=== PATIENT | female | born 1935 | race Caucasian/White ===

== ENCOUNTER 2024-01-08 18:02 | Inpatient (IN) | payer MEDICARE, BC, SELFPAY ==
[2024-01-08] VITALS (9 sets, daily range): BP systolic 132–179; BP diastolic 41–95
[2024-01-08 12:30] LABS: % Basophils 0.1 % (0-2); % Immature Granulocytes 0.3 % (0-0.5); % Lymphocytes 13.4 % (20.5-51.1); % Monocytes 6.8 % (1.7-9.3); % Neutrophils 79.4 % (42.2-75.2); Absolute Lymphocytes 0.9 10^3/uL (1.2-3.4); Absolute Monocytes 0.5 10^3/uL (0.1-0.6); Absolute Neutrophils 5.4 10^3/uL (1.4-6.5); Hematocrit 42.4 % (37.0-47.0); Nucleated Red Blood Cells % 0 %; Red Blood Cell Count 4.82 10^6/uL (4.20-5.40); Red Cell Dist. Width 13.2 % (11.5-14.5); White Blood Cell Count 6.8 10^3/uL (4.8-10.8)
[2024-01-08 12:34] LABS: ALT (SGPT) 14 U/L (0-35); AST (SGOT) 31 U/L (14-36); Albumin 4.3 g/dl (3.5-5.0); Alkaline Phosphatase 88 U/L (38-126); Blood Urea Nitrogen 27 mg/dl (7-17); Calcium 9.4 mg/dl (8.4-10.2); Carbon Dioxide 25 mmol/L (22-30); Chloride 94 mmol/L (98-107); Glucose 114 mg/dl (70-99); Potassium 4.1 mmol/L (3.5-5.1); Sodium 131 mmol/L (135-145); Total Bilirubin 0.8 mg/dl (0.2-1.3); Total Protein 6.8 g/dl (6.3-8.2); eGFR 54.53
[2024-01-08 13:18] LABS: Platelet Count 132 10^3/uL (130-400)
[2024-01-08] MEDS: DELTASONE 60 MG PO (13:56)
[2024-01-08] MEDS: DUONEB 3 ML INH ×3 (14:00→14:22)
[2024-01-08] MEDS: NSS 500 IV (14:11)
--- NOTE | 2024-01-08 14:23 | ED.GENMED ---
History of Present Illness
General
Chief Complaint: Weakness
Time Seen by Provider: 01/08/24 13:05
History of Present Illness
History of Present Illness:
88-year-old female with history of high blood pressure presenting to the emergency department for worsening cough. Patient reports symptoms for the past 5 days, productive cough with shortness of breath. Notes sick contacts at home. Also reports
GI symptoms with upper abdominal, constipation. She has had overall decreased p.o. intake. She tried [id number]-[id number] cough medication without relief. She denies fever. She denies any chest pain. She denies any vomiting. Notes history of
hernia in her abdomen however wishes for her abdominal pain is presently. Denies additional acute medical
Past History
Past History
ED Past Medical History: HTN and Other (Osteoporosis,)
ED Past Surgical History: Other (Thyroidectomy)
Social History
Tobacco: Non-smoker
Alcohol: None
Personal:
Living: alone
Phy Exam
Physical Exam
Physical Exam:
GENERAL: Alert , in no apparent distress
EYE: pupils equal and reactive
NECK: Supple, no significant adenopathy.
ENT: o/p clr, mmm.
CARDIAC: Regular rate and rhythm .
LUNGS: Diffuse wheezing bilaterally with rhonchorous breath sounds. No increased work of breathing
ABDOMEN: Soft, focal tenderness in the epigastric region over hernia, reducible, however moderate tenderness
NEUROLOGICAL: Alert and oriented, no focal neuro deficits
SKIN: Warm and dry, skin intact.
MUSCULOSKELETAL: No edema, well perfused.
PSYCH: Normal and appropriate interaction.
Course
Orders/Labs/Results
Orders:
Orders
01/08/24 Breakfast
Cholesterol Lowering
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
Cholesterol Lowering: Sodium, 2 Gram
01/08/24 11:38
Electrocardiogram (*1) Urgent
Reason for Study: Other
Other Reason for Exam: Respiratory Distress
CR Chest - 2 Views Urgent
Comment:
Reason For Exam: respiratory distress
01/08/24 11:56
Complete Blood Count/With Diff Urgent
Comprehensive Metabolic Panel Urgent
01/08/24 13:37
0.9% Sodium Chloride 500 ml [Nss] 500 ml IV BOLUS
Ipratropium/Albuterol Sulfate [Duoneb] 3 ml INH R NOW STA
01/08/24 13:40
Ipratropium/Albuterol Sulfate [Duoneb] 3 ml INH R NOW ONE
Ipratropium/Albuterol Sulfate [Duoneb] 3 ml INH R NOW STA
01/08/24 13:41
CT Abd/pelvis W Iv Cont Urgent
Comment:
Reason For Exam: upper abdominal pain, h x hernia
01/08/24 13:46
Prednisone [Deltasone] 60 mg PO NOW STA
01/08/24 14:15
COVID-19 Antigen Urgent
Source: Nasal Swab
Influenza A+B Rapid Molecular Urgent
[facility] Source: Nasal Swab
Specimen Description:
01/08/24 17:09
Azithromycin 500 mg/250 ml [Zithromax Infusion] 500 mg in 250 ml IV NOW
CefTRIAXone [Rocephin] 1,000 mg IV NOW STA
01/08/24 17:32
Admit/Transfer Patient As Directed
Co-Sign Provider:
Level of Care: Inpatient admission
Assign to:: Telemetry
Physician / Group: joana duran
Diagnosis: acute hypoxic respiratory failure
Reason for Telemetry: Arrhythmia
Date to Stop Telemetry: 01/11/24
Time to Stop Telemetry: 11:00
Reason for Hospitalization: acute hypoxic respiratory failure
Expected length of stay greater than two midnights?: Yes
ELOS- Estimated Length of Stay in days: 3
I certify the patient meets the requirements for IP care: Yes
01/08/24 17:33
Code Status As Directed
Resuscitation Status: Full Code
01/08/24 19:28
Acetaminophen [Tylenol] 650 mg PO Q4HPRN PRN
Enoxaparin Sodium [Lovenox] 40 mg SC QPM
Ipratropium/Albuterol Sulfate [Duoneb] 3 ml INH R Q4HPRN PRN
01/08/24 19:28
PULMONARY CONSULT Routine
Consulting Provider: Ariane Pereyra
Was physician already notified: Yes
Legionella Urinary Antigen Routine
[place] Source: Urine
Specimen Description:
Strep pneumoniae Antigen Routine
[facility] Source: Urine
Specimen Description:
Activity As Directed
Activity Level: Out of Bed-Early Mobility
Intake/ Output As Directed
Frequency: Per unit guidelines
Vital Signs As Directed
Frequency: Per unit guidelines
Weight As Directed
Frequency: Once
Comment: on admission
O2 Therapy [RESP] Routine
Titrate/Wean O2 to maintain O2 sat greater than (%): 95
Special Instructions: Wean as tolerated
Pt Eval And Treat Routine
Activity Level: As Tolerated
DX Deep Vein Thrombosis Video Routine
01/08/24 20:00
Guaifenesin [Mucinex] 600 mg PO Q12
01/09/24 06:00
Basic Metabolic Panel IN AM
Complete Blood Count/No Diff IN AM
01/09/24 12:00
Diltiazem Extended Release [Cardizem Cd] 120 mg PO NOON
Losartan [Cozaar] 100 mg PO NOON
01/09/24 18:00
Azithromycin 500 mg/250 ml [Zithromax Infusion] 500 mg in 250 ml IV Q24H
CefTRIAXone [Rocephin] 1,000 mg IV Q24H
01/10/24 06:00
Basic Metabolic Panel IN AM
Complete Blood Count/No Diff IN AM
01/11/24 06:00
Basic Metabolic Panel IN AM
Complete Blood Count/No Diff IN AM
01/11/24 11:00
DC Protocol for Telemetry ONCE
01/12/24 06:00
Basic Metabolic Panel IN AM
Complete Blood Count/No Diff IN AM
01/13/24 06:00
Basic Metabolic Panel IN AM
Complete Blood Count/No Diff IN AM
Abnormal Lab Results
01/08/24
11:56
MPV 12.0 H fL
(7.4-10.4)
Absolute Lymphs (auto) 0.9 L 10^3/uL
(1.2-3.4)
Neutrophils % 79.4 H %
(42.2-75.2)
Lymphocytes % 13.4 L %
(20.5-51.1)
Sodium 131 L mmol/L
(135-145)
Chloride 94 L mmol/L
(98-107)
BUN 27 H mg/dl
(7-17)
Glucose 114 H mg/dl
(70-99)
01/08/24 11:56
01/08/24 11:56
Vital Signs
Initial and Last Documented VS:
Initial Vital Signs
Temp Pulse Resp BP Pulse Ox
98.0 F 74 26 176/87 90
01/08/24 11:35 01/08/24 11:35 01/08/24 11:35 01/08/24 11:35 01/08/24 11:35
Last Documented Vital Signs
Temp Pulse Resp BP Pulse Ox
97.8 F 102 17 137/95 92
01/08/24 20:00 01/08/24 20:00 01/08/24 20:00 01/08/24 20:00 01/08/24 20:33
MDM/Problems Addressed
MDM/Problems Addressed:
88-year-old female with history of hypertension presenting for cough and shortness of breath for 5 days. Vital signs on arrival significant for high blood pressure
On exam, patient is in no acute respiratory distress, however does have diffuse rhonchorous breath sounds with wheezing. Patient and nursing protocol placed prior to my assessment, unremarkable laboratory analysis and chest x-ray imaging without
evidence of pneumonia. For this reason, more suspicious for viral process versus bronchitis. Will treat with DuoNebs and prednisone. Will also swab for influenza and COVID. Patient also noted to have tenderness overlying her hernia, although
reducible suspicion for strangulation versus incarceration. Plan for CT imaging.
16:00 -on reassessment, patient without significant improvement with DuoNebs and steroids. Oxygen dropped to the high 80s, placed on 2 L O2. Plan for admission, pending CT imaging of the abdomen
17:10 -CT without acute abnormality to the abdomen, however does show lower lobe pneumonia, consistent with symptoms. For this reason we will start antibiotics. No leukocytosis, blood pressure within normal limits. Without concern for sepsis.
Given oxygen requirements with acute infection, feel patient warrants admission.
*Critical Care Note
Total Time (30-74mins, 75-104mins- exclusive of procedures): Not Applicable
ED Attending Note
-
Portions of this chart may have been created with voice recognition software.� Occasional wrong word or��sound alike� substitutions may have occurred due to the inherent limitations of voice recognition software.
Discharge Plan
Departure
Patient Disposition: Admit
Date of Disposition: 01/08/24
Time of Disposition: 17:11
Admit to doctor: mahin
Presentation/result/management discussed w/ accepting MD/DO: Hospitalist
Condition: Fair
Discharge Problem:
Community acquired pneumonia, Hypoxia
Interventions
Interventions:
*Risk Screen - Suicide Last Done: 01/08/24 20:21
*General Assessment Last Done: 01/08/24 11:35
*ED COVID-19 Vaccine History Last Done: 01/08/24 11:35
*Nursing Disposition Last Done: 01/08/24 19:20
ED- Cardiac Assessment Last Done: 01/08/24 17:00
ED- Neurological Assessment Last Done: 01/08/24 17:00
ED- Pulmonary Assessment Last Done: 01/08/24 16:24
Discharge Date and Time
Discharge Date/Time: 01/08/24 19:20
[2024-01-08 14:52] LABS: COVID-19 Antigen Negative (Negative)
--- NOTE | 2024-01-08 17:15 | HPS.HSE ---
Family Physician
-
Family Physician: Faith Morales
Chief Complaint
-
cough, congestion
History of Present Illness
88-year-old female with history of high blood pressure presenting to the emergency department for worsening non productive cough and chest congestion for past 3 days. patient stated very weak. took Tylenol daily for generalized body achiness. denied
fever, chills. denied sob, chest pain. denied abdominal pain,n,v,d. denied dysuria or hematuria.
CT with pneumonia. requiring 4l of oxygen. admitting for further mangment.
Medical History
Past Medical History
Past Medical History: Reports Other
Additional Past Medical History:
PE
Hypertension
chronic kidney disease
Glaucoma
Cataract
Hiatal hernia
Osteoporosis
Past Surgical History: Reports Other
Additional Past Surgical History:
Left hip ORIF
Right cataract surgery
Social History
Tobacco: Non-smoker
Alcohol: None
Drug: None
Personal:
Living: With Family
Family History
Family History: Not pertinent
Allergies / Home Medications
Allergies reflects when Allergies were last updated in [facility].
Home Medications with original date entered in [facility]
Allergy/Medication List:
Allergies
Allergy/AdvReac Type Severity Reaction Status Date / Time
lisinopril Allergy Unknown Unknown Verified 05/05/21 13:39
metoprolol Allergy Unknown Unknown Verified 05/05/21 13:39
amlodipine Allergy Unknown Verified 05/05/21 13:39
Home Medications
acetaminophen 325 mg tablet (Tylenol) 325 mg PO QIDPRN PRN mild pain 01/08/24
cholecalciferol (vitamin D3) 1 tab PO NOON 01/08/24
diltiazem HCl 120 mg capsule,extended release 24 hr, controlled (DILT-XR) 120 mg PO NOON 01/08/24
losartan 100 mg tablet 100 mg PO NOON 01/08/24
therapeutic multivitamin 1 tab PO NOON PRN supplement 01/08/24
Review of Systems
-
Constitutional: Reports No Symptoms
EENT: Reports Other (Congestion)
Respiratory: Reports Cough
Cardiac: Reports No Symptoms
Abdomen/GI: Reports No Symptoms
: Reports No Symptoms
Musculoskeletal: Reports No Symptoms
Skin: Reports No Symptoms
Neurological: Reports No Symptoms
Endocrine: Reports No Symptoms
Hematologic/Lymphatic: Reports No Symptoms
Psych: Reports No Symptoms
Physical Exam
Vital Signs
Vital Signs
Temp Pulse Resp BP Pulse Ox
98.0 F 95 26 179/87 92
01/08/24 11:35 01/08/24 16:25 01/08/24 11:35 01/08/24 16:16 01/08/24 16:24
Physical Exam
General: Well Developed, Well Nourished and No Apparent Distress
HEENT: NormoCephalic, Moist mucous membranes and Atraumatic
Respiratory: Wheezes and Rales
Cardiac: S1/S2 and Regular Rhythm; No Murmur or Rub
GI: Soft, Non Tender, Non Distended and Normal Bowel Sounds; No Organomegaly
Rectal: Deferred by Provider
Musculoskeletal: No Clubbing, No Cyanosis and No Edema
Skin: No Rash
Neuro: AO x 3 and Nonfocal/grossly intact
Psych: Calm
Laboratory Results
-
01/08/24 11:56
01/08/24 11:56
Laboratory Results
Total Bilirubin 0.8 mg/dl (0.2-1.3) 01/08/24 11:56
AST 31 U/L (14-36) 01/08/24 11:56
ALT 14 U/L (0-35) 01/08/24 11:56
Alkaline Phosphatase 88 U/L (38-126) 01/08/24 11:56
Data Reviewed
-
Diagnostic Radiology: Report Reviewed by me
CT Scan: Report Reviewed by me
Lab Data: Labs Reviewed by me
Impression/Plan
-
# Cough/short of breath/wheezing/acute hypoxic respiratory failure likely from pneumonia
-COVID-negative, influenza negative
-CT abdomen pelvis with impression of Small fat-containing upper abdominal wall hernia.Cholelithiasis.Colonic diverticulosis.Bilateral adnexal cystic lesions for which a nonemergent follow-up pelvic ultrasound is recommended.Mild bilateral lower
lobe pneumonia.
-Chest x-ray No acute pulmonary abnormalities suspected.Streaky linear opacity at each lung base, similar compared to distant prior chest x-ray, most suggestive of scarring.
-Patient requiring 4 L of oxygen
-Nebs as needed for short breath and wheezing
-Continue ceftriaxone azithromycin
-Wean oxygen as tolerated
-obtain strep pneumoniae, urine legionella
# Acute on hyponatremia likely dehydration
-Sodium 131
-Received normal saline x 1 bag in ER
-Monitor BMP in a.m.
# Essential hypertension
-Losartan, diltiazem continued
#hxt of PE
# DVT prophylaxis
-Lovenox subcu
# CODE STATUS
-Full code
#
--- NOTE | 2024-01-08 17:30 | W.PN.UPDATE ---
Update Note
Progress Note Update
This serves as an addendum to the H&P dictated by James Doyle on 01/08/2024.
I saw and examined the patient.
The LOGISTICS ASSOCIATE or PA's note was reviewed and I agree with the note.
Comment:
Patient 88 years old female history of hypertension osteoporosis presented to the hospital cough and shortness of breath. Patient has been experiencing upper respiratory symptoms over the last few days also associated with some bloody nasal and GI
discomfort and constipation. She has decreased oral intake. Denies fevers or chills. In the ER she had a CT scan of the abdomen that showed some lower lobe pneumonia. Chest x-ray with densities as well. She was referred to hospitalist for
further evaluation.
Physical exam:
General: Acutely ill
HEENT: Normocephalic, Atraumatic and Moist Mucous Membranes
Respiratory: B/L coarse crackles in bases; Scattered Wheezes, No Rhonchi
Cardiac: Regular Rhythm and S1/S2
GI: Soft, Nontender and Nondistended
Musculoskeletal: No Clubbing, No Cyanosis and No Edema
Neuro: Awake, Alert and Oriented
Psych: Calm
A/P:
Hypoxia likely due to pneumonia--> IV antibiotics, follow-up cultures, PT OT eval. Will give further recommendations based on her clinical course.
[2024-01-08] MEDS: ROCEPHIN 1000 MG IV (17:39)
[2024-01-08] MEDS: ZITHROMAX INFUSION 250 IV (17:42)
[2024-01-08] MEDS: MUCINEX 600 MG PO (20:37)
[2024-01-08] MEDS: COZAAR 100 MG PO (20:39)
[2024-01-08] MEDS: CARDIZEM CD 120 MG PO (20:39)
[2024-01-08] MEDS: ANESTHETIC LOZENGE 1 LOZENGE PO (23:14)
[2024-01-09 02:43] VITALS: BP 137/80
[2024-01-09 06:23] LABS: Hematocrit 34.9 % (37.0-47.0); Hemoglobin 12.1 g/dL (12.0-16.0); Mean Corp Hgb Conc. 34.7 g/dL (33.0-37.0); Mean Corpuscular Hgb 29.4 pg (27.0-31.0); Mean Corpuscular Volume 84.7 fL (81.0-99.0); Platelet Count 127 10^3/uL (130-400); Red Blood Cell Count 4.12 10^6/uL (4.20-5.40); Red Cell Dist. Width 13.2 % (11.5-14.5)
[2024-01-09 06:55] LABS: Blood Urea Nitrogen 25 mg/dl (7-17); Calcium 8.9 mg/dl (8.4-10.2); Carbon Dioxide 26 mmol/L (22-30); Chloride 97 mmol/L (98-107); Estimated Creatinine Clearance 38 ml/min; Glucose 122 mg/dl (70-99); Potassium 4.1 mmol/L (3.5-5.1); Sodium 130 mmol/L (135-145); eGFR > 60.00
[2024-01-09 07:00] VITALS: BP 151/75
[2024-01-09] MEDS: MUCINEX 600 MG PO ×2 (08:25→20:18)
--- NOTE | 2024-01-09 09:05 | W.PN.HOSP.TC ---
Today's Communication/Plan
-
IV antibiotics. Pulmonary consult pending
Assessment / Plan
Assessment / Plan
Physical exam:
General: Well Developed, Well Nourished and No Apparent Distress
HEENT: Normocephalic, Atraumatic and Moist Mucous Membranes
Respiratory: Bilateral coarse crackles; few scattered wheezes, no rhonchi
Cardiac: Regular Rhythm and S1/S2
GI: Soft, Nontender and Nondistended
Musculoskeletal: No Clubbing, No Cyanosis and No Edema
Neuro: Awake, Alert and Oriented
Psych: Calm
A/P:
# Cough/short of breath/wheezing/acute hypoxic respiratory failure likely from pneumonia
-COVID-negative, influenza negative
-CT abdomen pelvis with impression of Small fat-containing upper abdominal wall hernia.Cholelithiasis.Colonic diverticulosis.Bilateral adnexal cystic lesions for which a nonemergent follow-up pelvic ultrasound is recommended.Mild bilateral lower
lobe pneumonia.
-Chest x-ray No acute pulmonary abnormalities suspected.Streaky linear opacity at each lung base, similar compared to distant prior chest x-ray, most suggestive of scarring.
-Patient requiring 4 L of oxygen--> down to 3 L of oxygen today on 01/08
-Nebs as needed for short breath and wheezing
-Continue ceftriaxone azithromycin
-Wean oxygen as tolerated
-obtain strep pneumoniae, urine legionella
-PT OT eval
-Pulmonary consult pending
-Discussed with daughter at bedside today on 01/08
# Acute on hyponatremia likely dehydration
-Sodium 130 today
-Start fluid restriction less than 50 ounces a day
-Received normal saline x 1 bag in ER
-Monitor BMP in a.m.
# Essential hypertension
-Losartan, diltiazem continued
#hxt of PE
# DVT prophylaxis
-Lovenox subcu
# CODE STATUS
-Full code
Anticipated Discharge: 24 - 48 hours
Subjective/Interval History
-
Date of Service: January 09, 2024
Patient still with cough and yellow sputum production. She requires oxygen. Still having some shortness of breath but overall improved. Afebrile
Objective Data
-
Labs:
Laboratory Results
01/09/24
05:24
WBC 5.0
Hgb 12.1
Hct 34.9 L
Plt Count 127 L
Sodium 130 L
Potassium 4.1
Chloride 97 L
Carbon Dioxide 26
BUN 25 H
Creatinine 0.9
Glucose 122 H
Calcium 8.9
Vital Signs:
Vital Signs
Temp Pulse Resp BP Pulse Ox
97.8 F 76 16 151/75 95
01/09/24 07:00 01/09/24 07:00 01/09/24 07:00 01/09/24 07:00 01/09/24 07:00
I&O
01/08/24 01/09/24 01/10/24
06:59 06:59 06:59
Output Total 250 / 250
Balance -250 / -250
[2024-01-09 10:38] VITALS: BP 134/90; PULSE 74; PULSE 78; O2SAT 96
[2024-01-09 10:44] VITALS: BMI 26.1
--- NOTE | 2024-01-09 10:47 | CON.PUL ---
Consultation
Consultation Request
Date/Time Consultation Requested: 01/08/2024 - 1927
Date/Time Consultation Performed: 01/09/2024923
Requesting Provider: LUCAS Fuller
Performing Provider: Jt Luna MD
Reason for Consultation: Hypoxia
Medical History
-
Chief Complaint: Cough, congestion, malaise
History of Present Illness:
88-year-old non-smoker with a past medical history of PE s/p hip fracture, hypertension, history of hyperparathyroidism, osteoporosis and glaucoma who presents with cough, congestion and dry heaves for >5 days. In triage she was afebrile to 98 �F,
hypertensive to 176/87, saturating 90% on room air and breathing at 26 breaths/min, with pulse rate 74 bpm. She had no evidence of leukocytosis on labs, Hb 12.1, platelets 127, with sodium 131, and COVID antigen negative. Flu A/B also negative,
and CXR showed streaky linear opacities at the bases which was confirmed to be pneumonia on CT A/P (due to to abdominal pain). She was given antibiotics in the ER with Zithromax, ceftriaxone, also given DuoNebs, prednisone 60 mg and fluids with 0.5
L NS 0.9%. She had been required supplemental oxygen up to 4 L/min and now pulmonary consulted for additional management/recommendations.
When I saw the patient she was in bed, daughter at bedside, and patient is on 2 L/min breathing currently. Overall she feels much better. She believes that her significant other was sick prior to her symptoms starting which is what triggered
everything. She is not bringing up any phlegm but she was for several days before today. Her breathing is also improved. She denies chest pain, headache, abdominal pain, nausea, recent travel, fevers or chills.
Of note patient previously followed with our office with Dr. Morris -last appointment on 09/30/2021. At that time she had a suspected provoked pulmonary embolism from hip surgery done in April 2021. She was on AC for 6 months. 6MWT did not show
need for O2. She was told to follow-up with us as needed.
PMHx: Hypertension, glaucoma, cataracts, history of hyperparathyroidism, history of PE, hiatal hernia, osteoporosis, history of bone fracture
PSHx: Left ORIF, parathyroid biopsy, right cataract surgery
Past Medical History
Past Medical History: Other (Above as per HPI)
Past Surgical History: Other (Above as per HPI)
Social History
Tobacco: Non-smoker
Alcohol: None
Drug: None
Personal: Single
Family History
Family History: CAD (Father + mother + siblings) and Diabetes (Mother)
Allergies / Home Medications
Allergies
Allergy/AdvReac Type Severity Reaction Status Date / Time
amlodipine Allergy ankle edema Verified 01/08/24 20:30
lisinopril Allergy dry cough Verified 01/08/24 20:30
metoprolol Allergy hallucinati Verified 01/08/24 20:30
ons
Home Medications
�Medication �Instructions �Recorded �Confirmed �Last Taken �Type
acetaminophen 325 mg tablet 325 mg PO QIDPRN PRN mild pain 01/08/24 01/08/24 01/08/24 History
(Tylenol)
cholecalciferol (vitamin D3) 1 tab PO NOON 01/08/24 01/08/24 01/07/24 History
diltiazem HCl 120 mg 120 mg PO NOON 01/08/24 01/08/24 01/07/24 History
capsule,extended release 24 hr,
controlled (DILT-XR)
losartan 100 mg tablet 100 mg PO NOON 01/08/24 01/08/24 01/07/24 History
therapeutic multivitamin 1 tab PO NOON PRN supplement 01/08/24 01/08/24 3 Days Ago History
~01/05/24
Review of Systems
-
History Source: Patient
All other systems: Negative unless noted
Vitals / Labs / Diagnostic Testing
Vital Signs
Temp Pulse Resp BP Pulse Ox
97.8 F 76 16 151/75 95
01/09/24 07:00 01/09/24 07:00 01/09/24 07:00 01/09/24 07:00 01/09/24 07:00
Lab Data
01/09/24 05:24
01/09/24 05:24
Microbiology
01/08/24 23:26 Urine Legionella Urinary Antigen - Final
Negative for Legionella pneumophila Serogroup 1 antigen.
A negative result does not rule out the possiblity of
Legionella infection due to other serogroups or species of
Legionella. Clinical correlation is recommended.
01/08/24 23:26 Urine Streptococcus pneumoniae Antigen (M - Final
Negative for Streptococcus pneumoniae antigen.
A negative result does not exclude infection with
Streptococcus pneumoniae. Clinical correlation is
recommended.
01/08/24 14:15 Nasal Swab Influenza Types A & B (BIBI) - Final
Negative for Influenza A & B, NAAT
Negative results must be combined with clinical observations
and patient history.
Nucleic Acid Amplification test (NAAT)performed on the
[employer] platform.
Diagnostic Testing:
Physical Exam
-
HEENT: Normocephalic and Anicteric
Cardiovascular: S1/S2 and Peripheral Edema (Negative)
Respiratory: Wheeze (Negative), Rales (Bilaterally), Rhonchi (Negative) and Non-Labored Respirations
GI: Soft, Non Distended, Non Tender and Normal Bowel Sounds
Neurology: Awake and Alert
Skin: Warm and Dry
General: Comfortable, Chills (Negative) and Sweats (Negative)
Assessment
-
Assessment: 88-year-old non-smoker with a past medical history of PE s/p hip fracture, hypertension, history of hyperparathyroidism, osteoporosis and glaucoma who presents with cough, congestion and dry heaves for >5 days. In triage she was
afebrile to 98 �F, hypertensive to 176/87, saturating 90% on room air and breathing at 26 breaths/min, with pulse rate 74 bpm. She had no evidence of leukocytosis on labs, Hb 12.1, platelets 127, with sodium 131, and COVID antigen negative. Flu
A/B also negative, and CXR showed streaky linear opacities at the bases which was confirmed to be pneumonia on CT A/P (due to to abdominal pain). She was given antibiotics in the ER with Zithromax, ceftriaxone, also given DuoNebs, prednisone 60 mg
and fluids with 0.5 L NS 0.9%. She had been required supplemental oxygen up to 4 L/min and now pulmonary consulted for additional management/recommendations.
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
Impression:
#Bibasilar pneumonia
#Acute respiratory failure with hypoxia on supplemental oxygen
#Thrombocytopenia -she has a history of thrombocytopenia
#Hypochloremic, hyponatremia
#Scoliosis
#History of valvular heart disease with mild�moderate MR, mild TR with moderate pulmonary hypertension (seen on TTE from 04/29)
Plan:
- Patient's O2 requirements have now improved and currently on 2 L/min nasal cannula
- Continue to wean down O2 dose to maintain SpO2 >90 this 94%
- prn nebulized bronchodilators - pt currently not bronchospastic
- Continue with antibiotics and finish 7 days of beta-lactam, 5 days of Zithromax
- Follow-up infectious workup with blood cultures, sputum cultures; Legionella/strep pneumoniae urine antigens are both negative
- Incentive spirometer encouraged
- Replete electrolytes with K>4, Mg>2
- Maintain euglycemia with goal BG >100 and <180
- PT recs home health
- DVT ppx
Pulmonary service will continue to follow along.
Total time spent today was 55 minutes for this encounter. Time includes reviewing laboratory test/imaging results, reviewing pertinent medical records, obtaining and reviewing medical history, performing an appropriate exam, ordering medications,
tests and procedures. Time also includes documentation of this encounter, coordinating patient care and communicating with other healthcare professionals. Total time does not include separately billed tests performed on this date of service.
Data:
CT A/P with IV contrast 01-08-2024:
1. Small fat-containing upper abdominal wall hernia.
2. Cholelithiasis.
3. Colonic diverticulosis.
4. Bilateral adnexal cystic lesions for which a nonemergent follow-up pelvic ultrasound is recommended.
5. Mild bilateral lower lobe pneumonia.
CXR 01-08-2024:
1. No acute pulmonary abnormalities suspected.
2. Streaky linear opacity at each lung base, similar compared to distant prior chest x-ray, most suggestive of scarring.
Outpatient [facility] data:
6 MWT:
������ 06-21-2021- 6 MWT- resting RA sat 98 with HR 83, after 1050 no SOB with pox 90 HR variable 115-130. within 2 mins pox 97 HR 104.
RADIOGRAPHIC STUDIES:
������ 05-05-2021- CT Chest- bilateral pulmonary embol. several occlusive filling defects seen within the subsegmental branches the left lower, right lower, right middle and right upper lobe branches. Mild dilation of the right ventricle with mild
elevation of RV LV ratio.
�������05-05-2021- Doppler LE US- negative for DVT.
CARDIAC STUDIES:
������ 05-06-2021- ECHO- EF 70-75 percent. No regional wall motion abnormalities seen. Mild-Moderate MR; Diastolic function indeterminate. Mildly enlarged RV size. With normal right ventricular function. Mild TR. PA pressure 50-55.
[2024-01-09 10:50] VITALS: BMI 20.2
[2024-01-09 11:00] VITALS: BP 122/68
[2024-01-09] MEDS: COZAAR 100 MG PO (11:26)
[2024-01-09] MEDS: CARDIZEM CD 120 MG PO (11:26)
[2024-01-09 15:00] VITALS: BP 135/64
--- NOTE | 2024-01-09 15:27 | CM ---
Met with pt at bedside
Pt lives with her significant other in a 2 story home, 5 steps to enter, FF set-up
Independent, does cooking, cleaning, drives
DME - cane, walker - does not use
SNF - has been to [facility] in past
HH - denies past hx
Has ride at d/c
PCP - Dr Faith Morales
Pharm - [facility]
PT - recommending HH - discussed with pt - declined
Plan - anticipate home no needs
[2024-01-09] MEDS: TYLENOL 650 MG PO (15:45)
[2024-01-09] MEDS: ZITHROMAX INFUSION 250 IV (17:12)
[2024-01-09] MEDS: STERILE WATER FOR INJECTION 10 ML IV (17:18)
[2024-01-09] MEDS: ROCEPHIN 1000 MG IV (17:18)
[2024-01-09 23:50] VITALS: BP 146/79
[2024-01-10 03:10] VITALS: BP 149/85
[2024-01-10 05:46] LABS: Hematocrit 35.4 % (37.0-47.0); Hemoglobin 12.1 g/dL (12.0-16.0); Mean Corp Hgb Conc. 34.2 g/dL (33.0-37.0); Mean Corpuscular Volume 84.9 fL (81.0-99.0); Mean Platelet Volume 11.4 fL (7.4-10.4); Platelet Count 146 10^3/uL (130-400); Red Blood Cell Count 4.17 10^6/uL (4.20-5.40); Red Cell Dist. Width 13.6 % (11.5-14.5); White Blood Cell Count 6.8 10^3/uL (4.8-10.8)
[2024-01-10 06:09] LABS: Blood Urea Nitrogen 25 mg/dl (7-17); Calcium 9.1 mg/dl (8.4-10.2); Carbon Dioxide 30 mmol/L (22-30); Chloride 101 mmol/L (98-107); Estimated Creatinine Clearance 33 ml/min; Glucose 89 mg/dl (70-99); Potassium 3.6 mmol/L (3.5-5.1); Sodium 135 mmol/L (135-145); eGFR 54.53
[2024-01-10] MEDS: MUCINEX 600 MG PO (08:06)
--- NOTE | 2024-01-10 08:07 | W.PN.HOSP.TC ---
Today's Communication/Plan
-
Discharge planning today
Assessment / Plan
Assessment / Plan
Physical exam:
General: Well Developed, Well Nourished and No Apparent Distress
HEENT: Normocephalic, Atraumatic and Moist Mucous Membranes
Respiratory: No crackles wheezes or rhonchi
Cardiac: Regular Rhythm and S1/S2
GI: Soft, Nontender and Nondistended
Musculoskeletal: No Clubbing, No Cyanosis and No Edema
Neuro: Awake, Alert and Oriented
Psych: Calm
A/P:
# Cough/short of breath/wheezing/acute hypoxic respiratory failure likely from pneumonia
-COVID-negative, influenza negative
-CT abdomen pelvis with impression of Small fat-containing upper abdominal wall hernia.Cholelithiasis.Colonic diverticulosis.Bilateral adnexal cystic lesions for which a nonemergent follow-up pelvic ultrasound is recommended.Mild bilateral lower
lobe pneumonia.
-Chest x-ray No acute pulmonary abnormalities suspected.Streaky linear opacity at each lung base, similar compared to distant prior chest x-ray, most suggestive of scarring.
-Patient requiring 4 L of oxygen--> down to 3 L of oxygen today on 01/08
-Nebs as needed for short breath and wheezing
-Continue ceftriaxone azithromycin
-Wean oxygen as tolerated
-obtain strep pneumoniae, urine legionella
-PT OT eval
-Pulmonary consult pending
-Discussed with daughter at bedside today on 01/09
-She has been off oxygen today and pulse ox okay
-Plan to discharge today
# Acute on hyponatremia likely dehydration
-Sodium 135 today
-Start fluid restriction less than 50 ounces a day
-Received normal saline x 1 bag in ER
-Monitor BMP in a.m.
# Essential hypertension
-Losartan, diltiazem continued
#hxt of PE
# DVT prophylaxis
-Lovenox subcu
# CODE STATUS
-Full code
Anticipated Discharge: Today
Subjective/Interval History
-
Date of Service: January 10, 2024
Patient overall doing better today. She wants to go home today
Objective Data
-
Labs:
Laboratory Results
01/10/24
05:30
WBC 6.8
Hgb 12.1
Hct 35.4 L
Plt Count 146
Sodium 135
Potassium 3.6
Chloride 101
Carbon Dioxide 30
BUN 25 H
Creatinine 1.0
Glucose 89
Calcium 9.1
Vital Signs:
Vital Signs
Temp Pulse Resp BP Pulse Ox
98.6 F 78 18 149/85 96
01/10/24 03:10 01/10/24 03:10 01/10/24 03:10 01/10/24 03:10 01/10/24 03:10
I&O
01/09/24 01/10/24 01/11/24
06:59 06:59 06:59
Intake Total 1330 / 1330
Output Total 250 / 250
Balance -250 / -250 1330 / 1330
[2024-01-10 08:16] VITALS: BP 146/83
[2024-01-10] MEDS: ZITHROMAX 250 MG PO (08:16)
[2024-01-10 10:34] VITALS: BP 146/88; BP 147/80; PULSE 72; O2SAT 95
[2024-01-10 12:04] VITALS: BP 122/70
--- NOTE | 2024-01-10 12:06 | W.DCSUMMARY ---
Discharge Summary
Discharge Data
Date of Admission: 01/08/24
Date of Discharge: 01/10/24
-
Pending Results: No
Hospital Course
Patient 88 years old female history of PE surrounding hip fracture in the past, hypertension, thrombocytopenia, hyperparathyroidism, osteoporosis, glaucoma, presented to the hospital cough shortness of breath and found to be hypoxic. Patient also
exhibited some GI symptoms for which she had a CT scan of the abdomen and found to have bibasilar pneumonia. She was given steroids IV fluids and antibiotics in the ED. We continued her with broad-spectrum antibiotics. She was initially on 4 L of
oxygen and we were able to titrate to room air. Pulmonary was consulted. Patient did well rest of the hospital stay. She has remained afebrile, hemodynamically stable, and symptomatically much improved. She participated with PT and OT during
this hospital stay. Blood cultures sterile. She had mild hyponatremia that improved with some fluid restriction. Patient is going to be discharged in stable condition today.
Discharge duration: 35 minutes
Discharge Plan
-
Patient Disposition: Home with Home Care
Discharge Diagnosis/Procedures: Pneumonia. Acute hypoxic respiratory failure.
Diet: Low Cholesterol
Activity: As tolerated
Blood Work: Please PCP to order CBC, BMP within 1 week
Referrals:
Faith Morales PA [Family Provider] - in less than 1 week
Jt Luna MD [Active] - in three to four weeks
Prescriptions:
New
azithromycin 250 mg Tablet
250 mg PO DAILY 3 Days Qty: 3 0RF
cefdinir 300 mg Capsule
300 mg PO Q12 5 Days Qty: 10 0RF
Continued
acetaminophen [Tylenol] 325 mg Tablet
325 mg PO QIDPRN PRN (Reason: mild pain)
therapeutic multivitamin Tablet
1 tab PO NOON PRN (Reason: supplement)
diltiazem HCl [DILT-XR] 120 mg Capsule,Ext.Rel 24h Degradable
120 mg PO NOON
losartan 100 mg Tablet
100 mg PO NOON
cholecalciferol (vitamin D3)
1 tab PO NOON
Discharge Orders:
Discharge Patient (As Directed); Ordered 01/10/24
Ordered By: Hitesh Sebastian
Discharge Date and Time
Discharge Date/Time: 01/10/24 12:54
Print Language: CITIZEN OF [place]
[2024-01-10] MEDS: CARDIZEM CD 120 MG PO (12:19)
[2024-01-10] MEDS: COZAAR 100 MG PO (12:20)
--- NOTE | 2024-01-10 12:29 | W.PN.PUL3 ---
Today's Communication / Plan
-
Abx
PT recommends home health
Ambulatory pulse oximetry prior to discharge
Check sputum culture if patient can provide sample
Patient is being prepared for discharge home. I will arrange for outpatient follow-up with our office. Pulmonary service will now sign off. Please reconsult if there are any additional questions/concerns, or if patient's respiratory status
deteriorates.
Assessment
-
Assessment: 88-year-old non-smoker with a past medical history of PE s/p hip fracture, hypertension, history of hyperparathyroidism, osteoporosis and glaucoma who presents with cough, congestion and dry heaves for >5 days. In triage she was
afebrile to 98 �F, hypertensive to 176/87, saturating 90% on room air and breathing at 26 breaths/min, with pulse rate 74 bpm. She had no evidence of leukocytosis on labs, Hb 12.1, platelets 127, with sodium 131, and COVID antigen negative. Flu
A/B also negative, and CXR showed streaky linear opacities at the bases which was confirmed to be pneumonia on CT A/P (due to to abdominal pain). She was given antibiotics in the ER with Zithromax, ceftriaxone, also given DuoNebs, prednisone 60 mg
and fluids with 0.5 L NS 0.9%. She had been required supplemental oxygen up to 4 L/min and now pulmonary consulted for additional management/recommendations.
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
Impression:
#Bibasilar pneumonia
#Acute respiratory failure with hypoxia on supplemental oxygen
#Thrombocytopenia -she has a history of thrombocytopenia
#Hypochloremic, hyponatremia
#Scoliosis
#History of valvular heart disease with mild�moderate MR, mild TR with moderate pulmonary hypertension (seen on TTE from 04/29)
Plan:
- Patient's O2 requirements have now improved and weaned down to room air today from 2 L/min nasal cannula
- Maintain SpO2 >90 this 94%
- prn nebulized bronchodilators - pt currently not bronchospastic
- Continue with antibiotics and finish 7 days of beta-lactam, 5 days of Zithromax
- recommend to obtain infectious workup with blood cultures + sputum cultures, if pt can provide a decent sample; Legionella/strep pneumoniae urine antigens are both negative
- Incentive spirometer encouraged
- Replete electrolytes with K>4, Mg>2
- Maintain euglycemia with goal BG >100 and <180
- PT recs home health
- DVT ppx
Patient is being prepared for discharge home. I will arrange for outpatient follow-up with our office. Pulmonary service will now sign off. Thank you for allowing us to be involved in the care of this patient. Please reconsult if there are any
additional questions/concerns, or if patient's respiratory status deteriorates.
Total time spent today was 35 minutes for this encounter. Time includes reviewing laboratory test/imaging results, reviewing pertinent medical records, obtaining and reviewing medical history, performing an appropriate exam, ordering medications,
tests and procedures. Time also includes documentation of this encounter, coordinating patient care and communicating with other healthcare professionals. Total time does not include separately billed tests performed on this date of service.
Data:
CT A/P with IV contrast 01-08-2024:
1. Small fat-containing upper abdominal wall hernia.
2. Cholelithiasis.
3. Colonic diverticulosis.
4. Bilateral adnexal cystic lesions for which a nonemergent follow-up pelvic ultrasound is recommended.
5. Mild bilateral lower lobe pneumonia.
CXR 01-08-2024:
1. No acute pulmonary abnormalities suspected.
2. Streaky linear opacity at each lung base, similar compared to distant prior chest x-ray, most suggestive of scarring.
Outpatient [facility] data:
6 MWT:
������ 06-21-2021- 6 MWT- resting RA sat 98 with HR 83, after 1050 no SOB with pox 90 HR variable 115-130. within 2 mins pox 97 HR 104.
RADIOGRAPHIC STUDIES:
������ 05-05-2021- CT Chest- bilateral pulmonary embol. several occlusive filling defects seen within the subsegmental branches the left lower, right lower, right middle and right upper lobe branches. Mild dilation of the right ventricle with mild
elevation of RV LV ratio.
�������05-05-2021- Doppler LE US- negative for DVT.
CARDIAC STUDIES:
������ 05-06-2021- ECHO- EF 70-75 percent. No regional wall motion abnormalities seen. Mild-Moderate MR; Diastolic function indeterminate. Mildly enlarged RV size. With normal right ventricular function. Mild TR. PA pressure 50-55.
Subjective Data
-
Date of Service:
Date of Service: January 10, 2024
Chief Complaint: Pulmonary Follow Up
Subjective:
Patient seen and evaluated today at bedside. She feels well today, eager to go home. Denies chest pain, headache, abdominal pain, fevers or chills.
Review of Systems
General: Other (Negative unless mentioned above)
Objective Data
Data Reviewed
Vital Signs / I&O / Oxygen:
Vital Signs
Temp Pulse Resp BP Pulse Ox
97.5 F 62 16 122/70 92
01/10/24 12:04 01/10/24 12:19 01/10/24 12:04 01/10/24 12:19 01/10/24 12:04
Intake and Output
01/09/24 01/10/24 01/11/24
06:59 06:59 06:59
Intake Total 1330 / 1330
Output Total 250 / 250
Balance -250 / -250 1330 / 1330
SaO2 92
Nasal Cannula flow liters per 2
minute
Physical Exam
General: Respiratory Distress (Negative) and Comfortable
HEENT: Normocephalic and Anicteric
Cardiovascular: S1-S2 and Peripheral Edema (Negative)
Respiratory: Wheeze (Negative), Crackles (Bilateral) and Rhonchi (Negative)
GI: Soft, Non Distended, Non Tender and Normal Bowel Sounds
Neurology: Awake and Alert
Skin: Warm, Dry, Cyanosis (Negative) and Jaundice (Negative)
Labs/Micro/Reports
Lab Data
01/10/24 05:30
01/10/24 05:30
Microbiology
01/08/24 23:26 Urine Legionella Urinary Antigen - Final
Negative for Legionella pneumophila Serogroup 1 antigen.
A negative result does not rule out the possiblity of
Legionella infection due to other serogroups or species of
Legionella. Clinical correlation is recommended.
01/08/24 23:26 Urine Streptococcus pneumoniae Antigen (M - Final
Negative for Streptococcus pneumoniae antigen.
A negative result does not exclude infection with
Streptococcus pneumoniae. Clinical correlation is
recommended.
01/08/24 14:15 Nasal Swab Influenza Types A & B (BIBI) - Final
Negative for Influenza A & B, NAAT
Negative results must be combined with clinical observations
and patient history.
Nucleic Acid Amplification test (NAAT)performed on the
[employer] platform.
[2024-01-10] MEDS: OMNICEF 300 MG PO (12:44)
--- NOTE | 2024-01-10 13:04 | CM ---
Pt for d/c
Declined HH
Pt d/c to home with family
== END 2024-01-10 12:54 | disposition home or self-care (01) | DRG 193 ==
LOC: 3 WEST ACU 18:02
PROVIDERS: Emergency Medicine; Registered Nurse; ADMITTING PHYSICIAN Hospitalist; EMERGENCY PHYSICIAN Student in an Organized Health Care Education/Training Program; FAMILY PHYSICIAN Physician Assistant Medical; OTHER PHYSICIAN Internal Medicine Critical Care Medicine
DX: J18.9 Pneumonia, unspecified organism (principal); J96.01 Acute respiratory failure with hypoxia; E87.1 Hypo-osmolality and hyponatremia; Z11.52 Encounter for screening for COVID-19
CPT/HCPCS: 71046; 74177; 80048; 80053; 85025; 85027; 87449; 87502; 87811; 87899; 93005; 94640; 96360; 97116; 97162; 99285; Q9967